=== PATIENT | female | born 1950 | race Caucasian/White ===

== ENCOUNTER 2016-12-07 22:03 | Inpatient (IN) | payer OTHER, MEDICARE ==
[~2016-12-07] VITALS: Ht 160 cm; Wt 83.1 kg
[~2016-12-07 22:03] MED LIST: ACIPHEX20 MG PO; ASPIR-LOW81 MG PO; ATIVAN0.5 MG PO; ATORVASTATIN TAB 80M; CELEXA40 MG PO; CITALOPRAM HBR40 MG; CLARITIN,ALAVAR10 MG PO; CLARITIN10 MG PO; CYANOCOBALAM1000 MCG PO; DAILY MULTIPLE1 EACH PO; FLONASE16 G1 BOTH NARES; IRON325 M1 PO; LIPITOR40 MG PO; MELOXICAM7.5 MG PO; METOPROLOL TART25 MG PO; MULTIVITAMIN W1 EACH PO; NASONEX17 GM BOTH NARES; NITROGLYCERIN0.4 MG SL; OXYCODONE HCL5 MG; OXYCONTIN15 MG; PSEUDOEPHEDRIN120 MG PO; ROXICODONE5 MG PO; STOOL SOFTENER100 M1 PO; ULTRAM50 MG PO; VITAMIN B12-FO1 EACH PO; VITAMIN D2000 UNIT PO; VITAMIN D31000 UNI2 PO; VOLTAREN 1% GE100 GM TP; ZANTAC300 MG PO
[2016-12-08 06:05] VITALS: BP 123/64
[2016-12-08 10:58] VITALS: BP 104/54
[2016-12-08 12:30] VITALS: BP 86/51
[2016-12-08 15:52] VITALS: BP 96/55
[2016-12-08 17:38] VITALS: BP 113/58
[2016-12-08 20:18] VITALS: BP 92/57
[2016-12-09 00:03] VITALS: BP 92/52
[2016-12-09 04:17] VITALS: BP 95/53
[2016-12-09 06:01] LABS: HEMATOCRIT 31.4 % (36.0-46.0); MCV 92.1 FL (83-99)
[2016-12-09 08:15] VITALS: BP 103/55
[2016-12-09 12:13] VITALS: BP 101/51
[2016-12-09 15:51] VITALS: BP 109/58
[2016-12-09 19:25] VITALS: BP 129/60
[2016-12-10] VITALS: BP 124/64
[2016-12-10 04:25] VITALS: BP 129/70
[2016-12-10 05:28] LABS: HEMATOCRIT 31.8 % (36.0-46.0); MCV 90.3 FL (83-99)
[2016-12-10 08:06] VITALS: BP 120/64
[2016-12-10] MEDS ORDERED: BENADRYL25 MG PO (10:21)
[2016-12-10] MEDS ORDERED: ELIQUIS2.5 MG PO (10:23)
[2016-12-10] MEDS ORDERED: OXYCODONE HCL5 MG PO (10:23)
[2016-12-10] MEDS ORDERED: SENNA PLUS TAB1 EACH PO (10:23)
[2016-12-10] MEDS ORDERED: CELECOXIB200 MG PO (10:23)
[2016-12-10] MEDS ORDERED: TYLENOL REGULA325 MG PO (10:23)
[2016-12-10] MEDS ORDERED: OXYCONTIN10 MG PO (10:23)
[2016-12-10 11:57] VITALS: BP 124/62
== END 2016-12-10 14:01 | DRG 470 ==
LOC: ENRESERV 22:03 → 2SOUTH 12-08 05:27 → 3WEST 12-08 10:07 → 2SOUTH 12-08 11:15 → 3WEST 12-10 14:01
PROVIDERS: Orthopaedic Surgery
PROC: 0SRC0J9 Replacement of Right Knee Joint with Synthetic Substitute, Cemented, Open Approach (ICD-10-PCS; principal; 2016-12-08)
DX: M17.11 Unilateral primary osteoarthritis, right knee (principal); K21.9 Gastro-esophageal reflux disease without esophagitis; G47.30 Sleep apnea, unspecified; F41.9 Anxiety disorder, unspecified
CPT/HCPCS: 85014; 85018; C1713; J0131; J0690; J1100; J1885; J2250; J2405; J2795; J7050; Q0175

== ENCOUNTER 2017-07-18 21:12 | Inpatient (IN) | payer OTHER, MEDICARE ==
[~2017-07-18] VITALS: Ht 160 cm; Wt 82.6 kg
[~2017-07-18 21:12] MED LIST changes: +BENADRYL25 MG PO; +CELECOXIB200 MG PO; +ELIQUIS2.5 MG PO; +OXYCODONE HCL5 MG PO; +OXYCONTIN10 MG PO; +PRILOSEC20 MG PO; +SENNA PLUS TAB1 EACH PO; +TYLENOL REGULA325 MG PO
[2017-07-19 07:33] VITALS: BP 110/63
[2017-07-19 13:37] VITALS: BP 108/62
[2017-07-19 15:55] VITALS: BP 108/60
[2017-07-19 18:02] VITALS: BP 112/57
[2017-07-19 20:10] VITALS: BP 102/58
[2017-07-20 00:10] VITALS: BP 107/59
[2017-07-20 03:58] VITALS: BP 131/60
[2017-07-20 05:23] LABS: HEMATOCRIT 34.5 % (36.0-46.0); MCV 91.5 FL (83-99)
[2017-07-20 05:25] LABS: HEMOGLOBIN 11.4 G/DL (11.9-15.5)
[2017-07-20 05:51] LABS: CHLORIDE 101 MEQ/L (99-109); CREATININE 0.8 MG/DL (0.6-1.3); GFR ESTIMATE (CALCULATED) > 59 mL/min/; GLUCOSE 114 mg/dL (70-99); POTASSIUM 4.3 MEQ/L (3.7-5.4); SODIUM 134 MEQ/L (136-147); UREA NITROGEN (BUN) 18 mg/dL (9-23)
[2017-07-20 07:58] VITALS: BP 114/64
[2017-07-20] MEDS ORDERED: ELIQUIS2.5 MG PO (10:29)
[2017-07-20] MEDS ORDERED: OXYCODONE HCL5 MG PO (10:29)
[2017-07-20 11:37] VITALS: BP 106/50
== END 2017-07-20 14:23 | DRG 470 ==
LOC: ENRESERV 21:12 → 2SOUTH 07-19 06:29 → 3WEST 07-19 13:21
PROVIDERS: Orthopaedic Surgery
PROC: 0SRD0J9 Replacement of Left Knee Joint with Synthetic Substitute, Cemented, Open Approach (ICD-10-PCS; principal; 2017-07-19)
DX: M17.12 Unilateral primary osteoarthritis, left knee (principal); R21 Rash and other nonspecific skin eruption; J45.909 Unspecified asthma, uncomplicated; G47.33 Obstructive sleep apnea (adult) (pediatric); K21.9 Gastro-esophageal reflux disease without esophagitis; K44.9 Diaphragmatic hernia without obstruction or gangrene; Z96.651 Presence of right artificial knee joint
CPT/HCPCS: 80048; 85014; 85018; 94660; C1713; J0131; J0690; J1100; J1885; J2250; J2795; J7050; Q0175